=== PATIENT | male | born 1975 | race Caucasian/White ===

== ENCOUNTER 2018-06-19 10:50 | Emergency (ER) | payer OTHER ==
[~2018-06-19] VITALS: Ht 167.6 cm; Wt 80.6 kg
[~2018-06-19 10:50] MED LIST: DOXYCYCLINE HY100 MG PO; HYCODAN SYRUP480 ML PO
[2018-06-19] MEDS ORDERED: MEDROL DOSEPAK4 MG PO (13:53)
[2018-06-19] MEDS ORDERED: ULTRAM50 MG PO (13:53)
[2018-06-19 14:35] VITALS: BP 117/63
== END 2018-06-19 14:48 | disposition home or self-care (01) ==
LOC: EME 10:50
DX: M54.42 Lumbago with sciatica, left side (principal); F17.200 Nicotine dependence, unspecified, uncomplicated
CPT/HCPCS: 72100; 99281; 99283